=== PATIENT | male | born 1950 | race Caucasian/White ===

== ENCOUNTER → 2019-04-21 | Outpatient (CLI) | payer MEDICARE, OTHER ==
--- NOTE | 2019-04-21 17:31 | Diagnostic Imaging Report ---
Renal ultrasound Clinical History: Chronic kidney disease Discussion: Sonographic evaluation of the kidneys is performed. The kidneys have normal size and cortical echogenicity. The right kidney measures 13.2 cm in length. The left kidney measures 13.7 cm in length. There is no hydronephrosis or shadowing renal calculus. In the interpolar region right kidney, a 4.5 x 4.1 x 4.6 cm anechoic lesion is noted. In the upper pole left kidney, a 2.0 x 1.8 x 2.0 cm anechoic lesion is noted. In the interpolar region, a 1.2 x 0.8 x 1.1 cm anechoic lesion is also seen. These are most compatible with cysts. No perinephric fluid collection is seen. Survey images of the bladder demonstrate no abnormality. Impression: 1. Bilateral renal cysts. Otherwise, unremarkable renal ultrasound. Signed by: Dr. Alberto Mercado MD on 04/21/2019 5:28 PM
== END ==
LOC: US 16:32
PROVIDERS: ATTEND Internal Medicine
DX: N18.3 Chronic kidney disease, stage 3 (moderate) (principal)
CPT/HCPCS: 76770